=== PATIENT | male | born 1985 | race Two or more races ===

== ENCOUNTER 2017-04-24 18:48 | Emergency (ER) | payer OTHER ==
--- NOTE | ~2017-04-24 | CR72 ---
[facility] A Service of [facility] & [facility] RADIOLOGY TEXT RESULTS PATIENT: MARCELO POWELL LOCATION: SED : 89 UNIT #: [id number] AGE: [address]: Ade Crawley SEX: M ORDER DR: [id number] [address] [address] [id number] MR#: [id number] Acc #: [id number] NAME: MARCELO POWELL : 1985 SEX: M STUDY DATE/TIME: 04/24/2017 19:08 UNIT: SED ROOM: STUDY DESCRIPTION: CR Chest Single View Portable Attending Physician: Ade Crawley Pa-C Ordering Physician: Ade Crawley Pa-C Primary Care Physician: No Primary Care Physician MEDICAL IMAGING REPORT This report is preliminary unless electronic signature is present. EXAM Portable chest. HISTORY Shortness breath for the past week. TECHNIQUE Single AP view chest was obtained. FINDINGS A single AP view of the chest shows both lungs to be clear. The heart is normal in size. The mediastinal contour is normal. No significant bone abnormalities are seen. IMPRESSION Normal AP chest. Dictated by... Jericho Damian M.D. THIS IS AN ELECTRONICALLY VERIFIED REPORT Jericho Damian M.D. at 04/26/2017 7:08 AM RLF/gz TD: 04/25/2017 08:25 JOB #: [id number] MEDICAL IMAGING REPORT Page 1 of 1
[2017-04-24] MEDS ORDERED: NO MEDICATIONS (18:52)
[2017-04-24 19:25] LABS: BASOPHIL# 0.1 X10e3 (0-0.3); EOSINOPHIL# 0.3 X10e3 (0-0.7); EOSINOPHIL% 3.9 % (0.0-7.0); HEMATOCRIT 45.8 % (38.0-50.0); HEMOGLOBIN 16.3 gm/dL (13.0-16.0); LYMPHOCYTE% 35.7 % (17.0-45.0); MEAN CELL VOLUME 87.7 FL (83-96); MEAN CORPUSCULAR HEMOGLOBIN 31.3 PG (28-34); MEAN CORPUSCULAR HGB CONC 35.7 g/dL (30-36); MEAN PLATELET VOLUME 8.3 FL (6.5-11.5); MONOCYTE# 0.7 X10e3 (0-1.0); MONOCYTE% 8.1 % (3.0-12.0); NEUTROPHIL# 4.3 X10e3 (1.5-7.1); NEUTROPHIL% 51.3 % (40-75); PLATELET COUNT 186 X10e3 (140-420); RED BLOOD COUNT 5.22 X10e (3.90-5.60); RED CELL DISTRIBUTION WIDTH 13.1 % (11.0-15.5); WHITE BLOOD COUNT 8.3 X10e3 (4.0-10.5)
[2017-04-24 19:26] LABS: DIFF IND NO
[2017-04-24 19:41] LABS: ALBUMIN SERUM 4.8 g/dL (3.5-5.0); BILIRUBIN, DIRECT 0.1 mg/dL (0.0-0.2); BILIRUBIN,INDIRECT 0.4 mg/dL (0.0-0.9); BILIRUBIN,TOTAL 0.5 mg/dL (0.2-2.0); BUN/CREATININE RATIO 22.5; CREATININE SERUM 0.8 mg/dL (0.6-1.4); GLOM FILT RATE Estimated 120.8 mL/min (>60); POTASSIUM 3.7 mmol/L (3.5-5.1); PROTEIN TOTAL SERUM 7.7 g/dL (6.0-8.3)
== END 2017-04-24 20:00 | disposition home or self-care (01) ==
LOC: SED 18:48
PROVIDERS: Physician Assistant
DX: R06.02 Shortness of breath (principal); L03.211 Cellulitis of face; Z91.040 Latex allergy status
CPT/HCPCS: 36415; 71010; 80048; 80076; 85025; 99285